=== PATIENT | male | born 1970 | race Caucasian/White ===

== ENCOUNTER 2017-07-23 21:54 | Emergency (ER) | payer OTHER ==
[~2017-07-23] VITALS: Ht 177.8 cm; Wt 90.0 kg
[2017-07-23] MEDS ORDERED: SODIUM CHLOR 0.9% 1000 ML INJ 1,000 ML IV SCH (22:04)
--- NOTE | 2017-07-23 22:08 | PD ---
HPI Chief Complaint: Left flank pain Time Seen by Provider: 22:04 Travel History International Travel<30 days: No Contact w/Intl Traveler<30days: No Traveled to known affect area: No History of Present Illness HPI Patient states that he developed a left sided flank pain radiating towards his front abdomen, onset at around 10 AM this morning, ongoing intermittently, with intensity ranging from 6 up to 10 out of 10. Currently he states his intensity is at 6 out of 10, denies any associated nausea vomiting diarrhea fever rash chest pain or headache. Patient denies any alleviating or aggravating factors. PFSH Social History Tobacco Use: No Allergies-Medications (Allergen,Severity, Reaction): Coded Allergies: Penicillins (Verified Allergy, Mild, RASH, 07/23/17) Reported Meds & Prescriptions Reported Meds & Active Scripts Active No Active Prescriptions or Reported Medications Review of Systems General / Constitutional: No: Fever Eyes: No: Visual changes HENT: No: Headaches Cardiovascular: No: Chest Pain or Discomfort Respiratory: No: Shortness of Breath Gastrointestinal: No: Abdominal Pain Genitourinary: Positive: Flank Pain Musculoskeletal: No: Pain Skin: No Rash Neurologic: No: Weakness Psychiatric: No: Depression Endocrine: No: Polydipsia Hematologic/Lymphatic: No: Easy Bruising Physical Exam Narrative GENERAL: SKIN: Warm and dry. HEAD: Atraumatic. Normocephalic. EYES: Pupils equal and round. No scleral icterus. No injection or drainage. ENT: No nasal bleeding or discharge. Mucous membranes pink and moist. NECK: Trachea midline. No JVD. CARDIOVASCULAR: Regular rate and rhythm. RESPIRATORY: No accessory muscle use. Clear to auscultation. Breath sounds equal bilaterally. GASTROINTESTINAL: Abdomen soft, non-tender, nondistended. MUSCULOSKELETAL: Extremities without clubbing, cyanosis, or edema. No obvious deformities. NEUROLOGICAL: Awake and alert. No obvious cranial nerve deficits. Motor grossly within normal limits. Five out of 5 muscle strength in the arms and legs. Normal speech. PSYCHIATRIC: Appropriate mood and affect; insight and judgment normal. Data Data Last Documented VS Vital Signs Date Time Temp Pulse Resp B/P (MAP) Pulse Ox O2 Delivery O2 Flow Rate FiO2 07/23/17 22:10 98.4 53 18 141/63 (89) 95 Orders Orders Complete Blood Count With Diff (07/23/17 22:04) Comprehensive Metabolic Panel (07/23/17 22:04) Lipase (07/23/17 22:04) Urinalysis - C+S If Indicated (07/23/17 22:04) Ct Abd/Pel W/O Iv Contrast (07/23/17 22:04) Iv Access Insert/Monitor (07/23/17 22:04) Ecg Monitoring (07/23/17 22:04) Oximetry (07/23/17 22:04) NPO (07/23/17 22:04) Sodium Chlor 0.9% 1000 Ml Inj (Ns 1000 M (07/23/17 22:04) Sodium Chloride 0.9% Flush (Ns Flush) (07/23/17 22:15) Ketorolac Inj (Toradol Inj) (07/23/17 22:15) Labs Laboratory Tests Test 07/23/17 22:30 Urine Color LIGHT-YELLOW Urine Turbidity CLEAR Urine pH 5.5 Urine Specific [place] 1.005 Urine Protein NEG mg/dL Urine Glucose (UA) NEG mg/dL Urine Ketones NEG mg/dL Urine Occult Blood TRACE Urine Nitrite NEG Urine Bilirubin NEG Urine Urobilinogen LESS THAN 2.0 MG/DL Urine Leukocyte Esterase NEG Urine WBC 1 /hpf Microscopic Urinalysis Comment CULT NOT INDICATED Blood Urea Nitrogen 15 MG/DL Creatinine 1.15 MG/DL Random Glucose 120 MG/DL Total Protein 8.0 GM/DL Albumin 4.0 GM/DL Calcium Level 9.3 MG/DL Alkaline Phosphatase 80 U/L Aspartate Amino Transf (AST/SGOT) 26 U/L Alanine Aminotransferase (ALT/SGPT) 36 U/L Total Bilirubin 0.4 MG/DL Sodium Level 135 MEQ/L Potassium Level 4.0 MEQ/L Chloride Level 99 MEQ/L Carbon Dioxide Level 24.3 MEQ/L Anion Gap 12 MEQ/L Estimat Glomerular Filtration Rate 68 ML/MIN Lipase 59 U/L MDM Medical Decision Making Medical Screen Exam Complete: Yes Emergency Medical Condition: Yes Medical Record Reviewed: Yes Differential Diagnosis Pyelonephritis versus kidney stone versus hepatitis versus colitis versus diverticulitis Narrative Course Chemistry shows normal electrolytes, normal kidney function, normal liver function and normal pancreatic function Urinalysis shows no evidence of a UTI CT abdomen and pelvis shows a 5 mm proximal left ureteral calculus with mild hydronephrosis Diagnosis Primary Impression: Ureterolithiasis Patient Instructions: General Instructions, Kidney Stones (ED) Scripts Tramadol (Ultram) 50 Mg Tab 50 MG PO Q8H Y for BREAKTHROUGH PAIN, #9 TAB 0 Refills Prov: Sarwat Rios MD 07/24/17 Ketorolac (Ketorolac) 10 Mg Tab 10 MG PO TID for Pain Management for 5 Days, #15 TAB 0 Refills Prov: Sarwat Rios MD 07/24/17 Disposition: 01 DISCHARGE HOME Condition: Stable Sarwat Rios MD July 23, 2017 22:08
[2017-07-23 22:10] VITALS: BP 141/63; PULSE 53; RESP 18; TEMP 98.4; O2SAT 95
[2017-07-23] MEDS ORDERED: KETOROLAC TROMETHAMINE 30 MG/ML (IVP) VIAL IVP ONE (22:15)
[2017-07-23] MEDS ORDERED: SODIUM CHLORIDE 0.9% FLUSH 10 ML FLUSH IV FLUSH PRN (22:15)
[2017-07-23 22:40] LABS: BILIRUBIN, URINE NEG (NEG); BLOOD, URINE TRACE (NEG); GLUCOSE,URINE NEG (NEG); KETONE, URINE NEG (NEG); NITRITE,URINE NEG (NEG); PH, URINE 5.5 (5.0-8.5); URINE COLOR LIGHT-YELLOW (YELLW/STRAW); URINE LEUKOCYTE ESTERASE NEG (NEG)
[2017-07-23 23:07] LABS: AST (GOT) 26 U/L (15-37); BICARBONATE 24.3 MEQ/L (21.0-32.0); BLOOD UREA NITROGEN 15 MG/DL (7-18); CALCIUM 9.3 MG/DL (8.5-10.1); CHLORIDE 99 MEQ/L (98-107); CREATININE 1.15 MG/DL (0.60-1.30); GLOMERULAR FILTRATION RATE 68 ML/MIN (>89); GLUCOSE,RANDOM 120 MG/DL (74-106); SODIUM (NA) 135 MEQ/L (136-145)
[2017-07-23 23:11] LABS: ALKALINE PHOSPHATASE 80 U/L (45-117); ALT (GPT) 36 U/L (12-78); TOTAL BILIRUBIN ADULT 0.4 MG/DL (0.2-1.0)
--- NOTE | 2017-07-23 23:50 | RADRPT ---
EXAM DATE: 07/23/2017 11:31 PM EDT AGE/SEX: 47 years / Male INDICATIONS: Left flank pain. CLINICAL DATA: This is the patient's initial encounter. Patient reports that signs and symptoms have been present for 1 day and indicates a pain score of 7/10. MEDICAL/SURGICAL HISTORY: None. None. RADIATION DOSE: 13.88 CTDI (mGy) COMPARISON: No prior [facility] exams available for comparison. TECHNIQUE: Multiple contiguous axial images were obtained through the abdomen. Images were obtained using multiple row detector helical technique. Using dose reduction techniques, radiation dose was ke pt as low as reasonably achievable to obtain optimal diagnostic quality images. FINDINGS: Lower Lungs: The visualized lower lungs are clear. Liver: The liver has a homogeneous density without space-occupying lesion. There is no dilation of th e biliary tree. Spleen: Homogeneous density without enlargement. Pancreas: Unremarkable without mass or calcification. Kidneys: The right kidney is small and atrophic in appearance with no focal abnormality. Left kidney is prominent with mild hydronephrosis. There is a proximal right ureteral calculus measuring approxi mately 5 mm. Adrenal Glands: Unremarkable. Aorta: The aorta and proximal iliac vessels are grossly unremarkable without aneurysmal dilation. Bowel/Mesentery: The bowel loops are grossly unremarkable. The cecum and sigmoid colon have a normal configuration. Abdominal Wall: Intact. Retroperitoneum: No evidence of adenopathy in the retrocrural, para-aortic, or deep pelvic regions. Bladder: Contours are smooth. Reproductive Organs: No abnormal masses or calcifications seen. Inguinal: The inguinal region is unremarkable without evidence of adenopathy. Bony Structures: Unremarkable. CONCLUSION: 1. 5 mm proximal left ureteral calculus with mild hydronephrosis. Electronically signed by: Jean Claude Berg MD 07/23/2017 11:48 PM EDT
[2017-07-24] MEDS ORDERED: TRAM50 PO (00:04)
[2017-07-24] MEDS ORDERED: KETO10 PO (00:04)
== END 2017-07-24 | disposition home or self-care (01) ==
LOC: NEPD 21:54
DX: N13.2 Hydronephrosis with renal and ureteral calculous obstruction (principal)
CPT/HCPCS: 74176; 80053; 81001; 83690; 96374; 99284; J1885; J7030